=== PATIENT | male | born 1960 | race Caucasian/White ===

== ENCOUNTER 2020-12-04 19:08 | Emergency (ER) | payer SELFPAY ==
[~2020-12-04] VITALS: Ht 175.3 cm; Wt 100.0 kg
[2020-12-04] MEDS ORDERED: KETOROLAC 15MG/ML VIAL IM ONE (19:30)
[2020-12-04 20:49] VITALS: BP 138/74
== END 2020-12-04 21:00 | disposition home or self-care (01) ==
LOC: ER 19:08
DX: M79.642 Pain in left hand (principal); R07.89 Other chest pain; I10 Essential (primary) hypertension; Z88.2 Allergy status to sulfonamides; Z88.8 Allergy status to other drugs, medicaments and biological substances; V49.09XA Driver injured in collision with other motor vehicles in nontraffic accident, initial encounter; Y93.89 Activity, other specified; Y92.89 Other specified places as the place of occurrence of the external cause; Y99.8 Other external cause status
CPT/HCPCS: 71046; 73110; 73130; 93005; 96372; 99284; J1885